=== PATIENT | male | born 1995 | race Caucasian/White ===

== ENCOUNTER 2017-02-15 21:05 | Emergency (ER) | payer OTHER ==
[2017-02-15 21:20] VITALS: BP 133/87
--- NOTE | 2017-02-15 21:47 | EDM.PDOC ---
ED HPI GENERAL MEDICAL PROBLEM - General Chief Complaint: ENT Problem Stated Complaint: SORE THROAT Time Seen by Provider: 02/15/17 21:43 Source of Information: Reports: Patient History Limitations: Reports: No Limitations - History of Present Illness INITIAL COMMENTS - FREE TEXT/NARRATIVE: Pt with sore throat since Friday. Denies fever. No other sick contacts. History of tonsillitis. Onset: Gradual Duration: Getting Worse Location: Reports: Face Quality: Reports: Sharp Severity: Moderate Improves with: Reports: Medication Worsens with: Reports: Other (swallowing) Associated Symptoms: Reports: No Other Symptoms Treatments REMEDIAL [employer]SE[employer]: Reports: NSAIDS Throat Pain Score (Numeric/FACES): 8 - Related Data Allergies Allergy/AdvReac Type Severity Reaction Status Date / Time No Known Allergies Allergy Verified 02/15/17 21:26 Home Meds: Home Meds Dextroamphetamine/Amphetamine [Adderall 20 mg Tablet] 1 tab PO ASDIRECTED [History] Past Medical History HEENT History: Reports: Impaired Vision Respiratory History: Reports: Asthma Musculoskeletal History: Reports: Fracture Neurological History: Reports: Concussion Psychiatric History: Reports: ADD - Past Surgical History HEENT Surgical History: Reports: Tonsillectomy Social & Family History - Tobacco Use Smoking Status *Q: Never Smoker - Alcohol Use Days Per Week of Alcohol Use: 2 Number of Drinks Per Day: 5 Total Drinks Per Week: 10 - Recreational Drug Use Recreational Drug Use: No ED ROS ENT - Review of Systems Review Of Systems: See Below Constitutional: Reports: No Symptoms HEENT: Reports: Throat Pain Respiratory: Reports: No Symptoms Cardiovascular: Reports: No Symptoms Endocrine: Reports: No Symptoms GI/Abdominal: Reports: No Symptoms ED EXAM, ENT - Physical Exam Exam: See Below Exam Limited By: No Limitations General Appearance: Alert, WD/WN, No Apparent Distress Ears: Normal External Exam, Normal Canal, Hearing Grossly Normal, Normal TMs Nose: Normal Inspection, Normal Mucousa, No Blood Mouth/Throat: Tonsillar Erythema Head: Atraumatic, Normocephalic Neck: Lymphadenopathy (R), Lymphadenopathy (L) Respiratory/Chest: No Respiratory Distress, Lungs Clear, Normal Breath Sounds, No Accessory Muscle Use, Chest Non-Tender Cardiovascular: Normal Peripheral Pulses, Regular Rate, Rhythm, No Edema, No Gallop, No JVD, No Murmur, No Rub GI/Abdominal: Normal Bowel Sounds, Soft, Non-Tender, No Organomegaly, No Distention, No Abnormal Bruit, No Mass Course - Vital Signs Last Recorded V/S: Last Vital Signs Temp 97.9 F 02/15/17 21:25 Pulse 54 L 02/15/17 21:25 Resp 16 02/15/17 21:25 BP 133/87 02/15/17 21:25 Pulse Ox 96 02/15/17 21:25 - Orders/Labs/Meds Orders: Active Orders 24 hr Category Date Time Status CULTURE STREP A CONFIRMATION [RM] Stat Lab 02/15/17 21:29 Results STREP SCRN A RAPID W CULT CONF [RM] Stat Lab 02/15/17 21:29 Results Labs: Laboratory Tests 02/15/17 02/15/17 Range/Units 21:48 21:48 WBC 10.4 (4.5-11.0) K/uL RBC 5.31 (4.30-5.90) M/uL Hgb 15.5 H (12.0-15.0) g/dL Hct 44.2 (40.0-54.0) % MCV 83 (80-98) fL MCH 29 (27-31) pg MCHC 35 (32-36) % Plt Count 230 (150-400) K/uL Neut % (Auto) 61 (36-66) % Lymph % (Auto) 26 (24-44) % [place] % (Auto) 11 H (2-6) % Eos % (Auto) 1 L (2-4) % Baso % (Auto) 0 (0-1) % Monoscreen Negative (NEGATIVE) Departure - Departure Time of Disposition: 22:10 Disposition: Home, Self-Care 01 Condition: Good Clinical Impression: Pharyngitis Qualifiers: Pharyngitis/tonsillitis etiology: unspecified etiology Qualified Code(s): J02.9 - Acute pharyngitis, unspecified - Discharge Information Referrals: PCP,None [Primary Care Provider] - Forms: ED Department Discharge Additional Instructions: Rapid strep negative. Culture pending. CBC with elevated Monocytes. Flathead negative. Will treat for presumptive strep. Rx for Amoxicillin 1000mg BID x 7 days given. 1st dose given in ER. Pt to increase fluids, rest. Followup if symptoms persist or worsen. - Problem List & Annotations (1) Pharyngitis SNOMED Code(s): 053714034 Code(s): J02.9 - ACUTE PHARYNGITIS, UNSPECIFIED Status: Acute Priority: Low Current Visit: Yes Qualifiers: Pharyngitis/tonsillitis etiology: unspecified etiology Qualified Code(s): J02.9 - Acute pharyngitis, unspecified - My Orders Last 24 Hours: My Active Orders 02/15/17 21:29 CULTURE STREP A CONFIRMATION [RM] Stat STREP SCRN A RAPID W CULT CONF [RM] Stat - Assessment/Plan Last 24 Hours: My Active Orders 02/15/17 21:29 CULTURE STREP A CONFIRMATION [RM] Stat STREP SCRN A RAPID W CULT CONF [RM] Stat
[2017-02-15] MEDS ORDERED: Amoxicillin 500 MG Cap PO ONE (22:15)
== END 2017-02-15 22:26 | disposition home or self-care (01) ==
LOC: JP.ED 21:05
DX: J02.9 Acute pharyngitis, unspecified (principal); J45.909 Unspecified asthma, uncomplicated
CPT/HCPCS: 36415; 85025; 86308; 87081; 87430; 99283; A9270

== ENCOUNTER 2021-04-11 12:52 | Emergency (ER) | payer OTHER ==
[2021-04-11] MEDS ORDERED: Ketorolac 30 MG/ML SDV IM ONE (13:20)
[2021-04-11] MEDS ORDERED: Ondansetron 4 MG Tab.DIS PO ONE (13:20)
--- NOTE | 2021-04-11 13:26 | EDM.PDOC ---
ED HPI GENERAL MEDICAL PROBLEM - General Chief Complaint: Respiratory Problem Stated Complaint: FEVER 102.8, COUGH, HEADACHE, SOB,VOMITING Time Seen by Provider: 04/11/21 13:10 Source of Information: Reports: Patient History Limitations: Reports: No Limitations - History of Present Illness INITIAL COMMENTS - FREE TEXT/NARRATIVE: pt had positive covid on friday. He is nauseated. He has a severe headache and is very weak. He is mildly sob. He is coughing. Onset: Gradual Duration: Day(s): Location: Reports: Chest, Generalized Associated Symptoms: Reports: Cough, Diaphoresis, Fever/Chills, Loss of Appetite, Nausea/Vomiting, Shortness of Breath - Related Data Allergies Allergy/AdvReac Type Severity Reaction Status Date / Time No Known Allergies Allergy Verified 02/15/17 21:26 Home Meds: Home Meds Dextroamphetamine/Amphetamine [Adderall 20 mg Tablet] 1 tab PO ASDIRECTED 02/15/17 [History] Past Medical History HEENT History: Reports: Impaired Vision Respiratory History: Reports: Asthma Musculoskeletal History: Reports: Fracture Neurological History: Reports: Concussion Psychiatric History: Reports: ADD - Infectious Disease History Infectious Disease History: Reports: Chicken Pox - Past Surgical History HEENT Surgical History: Reports: Tonsillectomy Musculoskeletal Surgical History: Reports: None Social & Family History - Tobacco Use Tobacco Use Status *Q: Never Tobacco User - Caffeine Use Caffeine Use: Reports: None - Recreational Drug Use Recreational Drug Use: No ED ROS GENERAL - Review of Systems Review Of Systems: See Below Constitutional: Reports: Fever, Chills, Malaise, Diaphoresis, Decreased Appetite HEENT: Reports: No Symptoms Respiratory: Reports: Shortness of Breath, Cough Cardiovascular: Reports: No Symptoms Endocrine: Reports: No Symptoms GI/Abdominal: Reports: Nausea : Reports: Discharge Musculoskeletal: Reports: Muscle Pain Skin: Reports: No Symptoms ED EXAM, GENERAL - Physical Exam Exam: See Below Free Text/Narrative:: pt had a positive covid 19 test on Friday. He is nauseated and having a severe headache. He hurts everywhere and is spiking temps off and on. Exam Limited By: No Limitations General Appearance: Alert, Anxious, Moderate Distress Ears: Normal TMs Nose: Normal Inspection Throat/Mouth: Normal Inspection Head: Atraumatic Neck: Normal Inspection Respiratory/Chest: Other (pt has o2 sats in the low 90s. ) Cardiovascular: Regular Rate, Rhythm, Tachycardia GI/Abdominal: Soft, Non-Tender (Male) Exam: Deferred Rectal (Males) Exam: Deferred Back Exam: Normal Inspection Extremities: Normal Inspection Neurological: Alert, Oriented, Normal Cognition Course - Vital Signs Last Recorded V/S: Last Vital Signs Temp 35.9 C L 04/11/21 15:19 Pulse 72 04/11/21 16:45 Resp 16 04/11/21 15:47 BP 103/61 04/11/21 16:45 Pulse Ox 95 04/11/21 16:45 - Orders/Labs/Meds Labs: Laboratory Tests 04/11/21 04/11/21 04/11/21 Range/Units 13:15 13:15 13:15 WBC 5.6 (4.5-11.0) K/uL RBC 5.52 (4.30-5.90) M/uL Hgb 16.1 H (12.0-15.0) g/dL Hct 45.8 (40.0-54.0) % MCV 83 (80-98) fL MCH 29 (27-31) pg MCHC 35 (32-36) % Plt Count 167 (150-400) K/uL Neut % (Auto) 69.5 H (36-66) % Lymph % (Auto) 20.4 L (24-44) % [place] % (Auto) 9.9 H (2-6) % Eos % (Auto) 0.0 L (2-4) % Baso % (Auto) 0.2 (0-1) % D-Dimer, Quantitative 570.45 H (0.0-500.0) ng/mL Sodium 137 L (140-148) mmol/L Potassium 3.9 (3.6-5.2) mmol/L Chloride 100 (100-108) mmol/L Carbon Dioxide 26 (21-32) mmol/L Anion Gap 14.9 H (5.0-14.0) mmol/L BUN 11 (7-18) mg/dL Creatinine 1.3 (0.8-1.3) mg/dL Est Cr Clr Drug Dosing 92.52 mL/min Estimated GFR (MDRD) > 60 (>60) Glucose 98 (74-106) mg/dL Calcium 8.4 L (8.5-10.1) mg/dL Total Bilirubin 0.4 (0.2-1.0) mg/dL AST 17 (15-37) U/L ALT 38 (12-78) U/L Alkaline Phosphatase 79 (46-116) U/L C-Reactive Protein (0.0-0.3) mg/dL Total Protein 7.4 (6.4-8.2) g/dL Albumin 3.8 (3.4-5.0) g/dL Globulin 3.6 H (2.3-3.5) g/dL Albumin/Globulin Ratio 1.1 L (1.2-2.2) 04/11/21 Range/Units 13:15 WBC (4.5-11.0) K/uL RBC (4.30-5.90) M/uL Hgb (12.0-15.0) g/dL Hct (40.0-54.0) % MCV (80-98) fL MCH (27-31) pg MCHC (32-36) % Plt Count (150-400) K/uL Neut % (Auto) (36-66) % Lymph % (Auto) (24-44) % [place] % (Auto) (2-6) % Eos % (Auto) (2-4) % Baso % (Auto) (0-1) % D-Dimer, Quantitative (0.0-500.0) ng/mL Sodium (140-148) mmol/L Potassium (3.6-5.2) mmol/L Chloride (100-108) mmol/L Carbon Dioxide (21-32) mmol/L Anion Gap (5.0-14.0) mmol/L BUN (7-18) mg/dL Creatinine (0.8-1.3) mg/dL Est Cr Clr Drug Dosing mL/min Estimated GFR (MDRD) (>60) Glucose (74-106) mg/dL Calcium (8.5-10.1) mg/dL Total Bilirubin (0.2-1.0) mg/dL AST (15-37) U/L ALT (12-78) U/L Alkaline Phosphatase (46-116) U/L C-Reactive Protein 7.01 H (0.0-0.3) mg/dL Total Protein (6.4-8.2) g/dL Albumin (3.4-5.0) g/dL Globulin (2.3-3.5) g/dL Albumin/Globulin Ratio (1.2-2.2) Meds: Medications Discontinued Medications Generic Name Dose Route Start Last Admin Trade Name Freoli PRN Reason Stop Dose Admin Acetaminophen 650 mg 04/11/21 15:00 Acetaminophen 325 Mg Tab PO 04/11/21 22:00 ONETIME PRN HEADACHE,CHILLS Diphenhydramine HCl 50 mg 04/11/21 15:00 Diphenhydramine 50 Mg/Ml Sdv IVPUSH 04/11/21 22:00 ONETIME PRN ALLERGIC RXN Epinephrine HCl 0.3 mg 04/11/21 15:00 Epinephrine 1 Mg/Ml Sdv IM 04/11/21 22:00 ONETIME PRN ALLERGIC RXN Famotidine 20 mg 04/11/21 15:00 Famotidine 20 Mg/2 Ml Sdv IV 04/11/21 22:00 ONETIME PRN ALLERGIC RXN Bamlanivimab 700 mg/ 160 mls @ 310 mls/hr 04/11/21 15:00 04/11/21 15:16 Etesevimab 1,400 mg/ Sodium IV 04/11/21 15:30 310 mls/hr Chloride ONETIME ONE Administration Ketorolac Tromethamine 60 mg 04/11/21 13:20 04/11/21 13:31 Ketorolac 30 Mg/Ml Sdv IM 04/11/21 13:21 60 mg ONETIME ONE Administration Methylprednisolone Sodium Succinate 125 mg 04/11/21 15:00 Methylprednisolone Sodium Succinate 125 Mg/2 Ml Sdv IVPUSH 04/11/21 22:00 ONETIME PRN ALLERGIC RXN Ondansetron HCl 4 mg 04/11/21 13:20 04/11/21 13:31 Ondansetron 4 Mg Tab.Dis PO 04/11/21 13:21 4 mg ONETIME ONE Administration - Re-Assessments/Exams Free Text/Narrative Re-Assessment/Exam: 04/11/21 14:12 pt will be given monoclonal therapy. He was given tordol 60 mg im. He was given zoforan odt 4 mg, He is feeling better. Departure - Departure Time of Disposition: 16:55 Disposition: Home, Self-Care 01 Condition: Fair Clinical Impression: COVID-19 - Discharge Information Instructions: COVID-19 Frequently Asked Questions Referrals: PCP,None [Primary Care Provider] - Forms: ED Department Discharge
[2021-04-11] MEDS ORDERED: diphenhydrAMINE 50 MG/ML SDV IVPUSH PRN (15:00)
[2021-04-11] MEDS ORDERED: methylPREDNISolone Sodium Succinate 125 MG/2 ML SDV IVPUSH PRN (15:00)
[2021-04-11] MEDS ORDERED: Famotidine 20 MG/2 ML SDV IV PRN (15:00)
[2021-04-11] MEDS ORDERED: EPINEPHrine 1 MG/ML SDV IM PRN (15:00)
[2021-04-11] MEDS ORDERED: Acetaminophen 325 MG Tab PO PRN (15:00)
[2021-04-11] MEDS ORDERED: Bamlanivimab 700 MG, ETESEVIMAB 1,400 MG in Sodium Chloride 0.9% 100 ML IV ONE (15:00)
[2021-04-11 16:46] VITALS: BP 103/61; PULSE 72
== END 2021-04-11 16:52 | disposition home or self-care (01) ==
LOC: JP.ED 12:52
DX: U07.1 COVID-19 (principal); J45.909 Unspecified asthma, uncomplicated
CPT/HCPCS: 36415; 80053; 85025; 85379; 86140; 96372; 99284; A9270; J1885; M0245; Q0245